=== PATIENT | female | born 1950 | race Caucasian/White ===

== ENCOUNTER → 2018-12-01 13:26 | Outpatient (CLI) | payer MEDICARE, BC, OTHER, SELFPAY ==
--- NOTE | 2018-12-01 | DI.MG.S_ITS ---
BILATERAL DIGITAL SCREENING MAMMOGRAM 3D/2D WITH CAD: 12/01/2018 CLINICAL: Routine screening. Comparison is made to exams dated: 10/24/2017 mammogram, 10/17/2016 mammogram, and 10/12/2015 mammogram - [facility]. There are scattered fibroglandular elements in both breasts. Current study was also evaluated with a Computer Aided Detection (CAD) system. No significant masses, calcifications, or other findings are seen in either breast. There has been no significant interval change. IMPRESSION: NEGATIVE There is no mammographic evidence of malignancy. A 1 year screening mammogram is recommended. This exam was interpreted at Station ID: [id number]. NOTE: For mammograms, a report in lay terms will be sent to the patient. Approximately 15% of breast malignancies will not be visualized mammographically. In the management of a palpable breast mass, a negative mammogram must not discourage biopsy of a clinically suspicious lesion. Electronically Signed By: Rene lemus/kevin:12/01/2018 16:55:36 letter sent: Normal Exam ACR BI-RADS Category 1: Negative 3341F
== END ==
PROVIDERS: PCP Family Medicine; Visit Provider Family Medicine
DX: Z12.31 Encounter for screening mammogram for malignant neoplasm of breast (principal)
CPT/HCPCS: 77063; 77067

== ENCOUNTER → 2019-02-09 08:03 | Outpatient (CLI) | payer MEDICARE, BC, OTHER, SELFPAY ==
[2019-02-09 10:03] LABS: Cholesterol 208 mg/dL (140-199); HDL Cholesterol 49 mg/dL (40-60); LDL Cholesterol Calculated 115 mg/dL (<100); Triglycerides 221 mg/dL (35-150)
[2019-02-09 11:04] LABS: Vitamin D 25 Hydroxy (D3) 25.1 ng/mL (30.0-100.0)
== END ==
PROVIDERS: PCP Student in an Organized Health Care Education/Training Program; Visit Provider Student in an Organized Health Care Education/Training Program
DX: E55.9 Vitamin D deficiency, unspecified (principal); Z13.220 Encounter for screening for lipoid disorders
CPT/HCPCS: 36415; 80061; 82306

== ENCOUNTER → 2019-03-11 09:45 | Outpatient (CLI) | payer MEDICARE, BC, OTHER, SELFPAY | PROVIDERS: PCP Student in an Organized Health Care Education/Training Program; Visit Provider Student in an Organized Health Care Education/Training Program | DX: Z13.820 Encounter for screening for osteoporosis (principal); Z78.0 Asymptomatic menopausal state | CPT/HCPCS: 77080 ==

== ENCOUNTER → 2019-12-18 11:13 | Outpatient (CLI) | payer MEDICARE, BC, OTHER, SELFPAY ==
--- NOTE | 2019-12-18 | DI.MG.S_ITS ---
BILATERAL DIGITAL SCREENING MAMMOGRAM 3D/2D WITH CAD: 12/18/2019 CLINICAL: Routine screening. Comparison is made to exams dated: 12/01/2018 mammogram, 10/24/2017 mammogram, and 10/17/2016 mammogram - [facility]. There are scattered fibroglandular elements in both breasts. Current study was also evaluated with a Computer Aided Detection (CAD) system. No significant masses, calcifications, or other findings are seen in either breast. There has been no significant interval change. IMPRESSION: NEGATIVE There is no mammographic evidence of malignancy. A 1 year screening mammogram is recommended. This exam was interpreted at Station ID: [id number]. NOTE: For mammograms, a report in lay terms will be sent to the patient. Approximately 15% of breast malignancies will not be visualized mammographically. In the management of a palpable breast mass, a negative mammogram must not discourage biopsy of a clinically suspicious lesion. Electronically Signed By: Rene lemus/kevin:12/18/2019 17:53:35 letter sent: Normal Exam ACR BI-RADS Category 1: Negative 3341F
== END ==
PROVIDERS: PCP Student in an Organized Health Care Education/Training Program; Visit Provider Student in an Organized Health Care Education/Training Program
DX: Z12.31 Encounter for screening mammogram for malignant neoplasm of breast (principal)
CPT/HCPCS: 77063; 77067

== ENCOUNTER → 2020-12-22 08:36 | Outpatient (CLI) | payer MEDICARE, BC, OTHER, SELFPAY ==
[2020-12-22] MEDS: COVID-19 VACC #1, MRNA(MOD) 100 MCG/0.5 ML VIAL IM (08:41)
== END ==
PROVIDERS: PCP Student in an Organized Health Care Education/Training Program; Visit Provider Internal Medicine
DX: Z23 Encounter for immunization (principal)
CPT/HCPCS: 0011A; 91301

== ENCOUNTER → 2020-12-29 08:26 | Outpatient (CLI) | payer MEDICARE, BC, OTHER, SELFPAY ==
--- NOTE | 2020-12-29 | DI.MG.S_ITS ---
BILATERAL DIGITAL SCREENING MAMMOGRAM 3D/2D WITH CAD: 12/29/2020 CLINICAL: Routine screening. Comparison is made to exams dated: 12/18/2019 mammogram, 12/01/2018 mammogram, and 10/24/2017 mammogram - [facility]. There are scattered fibroglandular elements in both breasts. Current study was also evaluated with a Computer Aided Detection (CAD) system. No significant masses, calcifications, or other findings are seen in either breast. There has been no significant interval change. IMPRESSION: NEGATIVE There is no mammographic evidence of malignancy. A 1 year screening mammogram is recommended. This exam was interpreted at Station ID: [id number]. NOTE: For mammograms, a report in lay terms will be sent to the patient. Approximately 15% of breast malignancies will not be visualized mammographically. In the management of a palpable breast mass, a negative mammogram must not discourage biopsy of a clinically suspicious lesion. Electronically Signed By: Adam dasilva/kevin:12/29/2020 08:53:39 letter sent: Normal Exam ACR BI-RADS Category 1: Negative 3341F
== END ==
PROVIDERS: PCP Student in an Organized Health Care Education/Training Program; Referring Provider Student in an Organized Health Care Education/Training Program; Visit Provider Student in an Organized Health Care Education/Training Program
DX: Z12.31 Encounter for screening mammogram for malignant neoplasm of breast (principal)
CPT/HCPCS: 77063; 77067

== ENCOUNTER → 2021-01-19 08:21 | Outpatient (CLI) | payer MEDICARE, BC, OTHER, SELFPAY ==
[2021-01-19] MEDS: COVID-19 VACC #2, MRNA(MOD) 100 MCG/0.5 ML VIAL IM (08:25)
== END ==
PROVIDERS: PCP Student in an Organized Health Care Education/Training Program; Visit Provider Internal Medicine
DX: Z23 Encounter for immunization (principal)
CPT/HCPCS: 0012A; 91301

== ENCOUNTER → 2022-02-07 11:11 | Outpatient (CLI) | payer MEDICARE, BC, OTHER, SELFPAY ==
--- NOTE | 2022-02-07 | DI.MG.S_ITS ---
BILATERAL DIGITAL SCREENING MAMMOGRAM 3D/2D WITH CAD: 02/07/2022 CLINICAL: Routine screening. Comparison is made to exams dated: 12/18/2019 mammogram, 12/29/2020 mammogram, and 12/01/2018 mammogram - [facility]. There are scattered fibroglandular elements in both breasts. Current study was also evaluated with a Computer Aided Detection (CAD) system. No significant masses, calcifications, or other findings are seen in either breast. There has been no significant interval change. IMPRESSION: NEGATIVE There is no mammographic evidence of malignancy. A 1 year screening mammogram is recommended. This exam was interpreted at Station ID: [id number]. NOTE: For mammograms, a report in lay terms will be sent to the patient. Approximately 15% of breast malignancies will not be visualized mammographically. In the management of a palpable breast mass, a negative mammogram must not discourage biopsy of a clinically suspicious lesion. Electronically Signed By: Adam dasilva/kevin:02/07/2022 14:33:28 letter sent: Normal Exam ACR BI-RADS Category 1: Negative 3341F
== END ==
PROVIDERS: PCP Student in an Organized Health Care Education/Training Program; Referring Provider Student in an Organized Health Care Education/Training Program; Visit Provider Student in an Organized Health Care Education/Training Program
DX: Z12.31 Encounter for screening mammogram for malignant neoplasm of breast (principal)
CPT/HCPCS: 77063; 77067

== ENCOUNTER → 2023-02-26 08:37 | Outpatient (CLI) | payer MEDICARE, BC, OTHER, SELFPAY ==
--- NOTE | 2023-02-26 | DI.MG.S_ITS ---
BILATERAL DIGITAL SCREENING MAMMOGRAM 3D/2D WITH CAD: 02/26/2023 CLINICAL: Routine screening. Comparison is made to exams dated: 02/07/2022 mammogram, 12/29/2020 mammogram, and 12/18/2019 mammogram - [facility]. There are scattered areas of fibroglandular density in both breasts (category b / 25%-50% glandular tissue). Current study was also evaluated with a Computer Aided Detection (CAD) system. No significant masses, calcifications, or other findings are seen in either breast. There has been no significant interval change. IMPRESSION: NEGATIVE There is no mammographic evidence of malignancy. A 1 year screening mammogram is recommended. Based on the Tyrer Cuzick model (a risk assessment model) the patient's lifetime risk is 4.5% and her 10 year risk is 3.7%. According to the ACR, ACS, and NCCN guidelines, an annual breast MRI exam along with mammogram is recommended if the patient's lifetime risk is 20% or greater. This exam was interpreted at Station ID: [id number]. NOTE: For mammograms, a report in lay terms will be sent to the patient. Approximately 15% of breast malignancies will not be visualized mammographically. In the management of a palpable breast mass, a negative mammogram must not discourage biopsy of a clinically suspicious lesion. Electronically Signed By: Sandrine correa/kevin:02/26/2023 09:43:30 letter sent: Normal Exam ACR BI-RADS Category 1: Negative 3341F
== END ==
PROVIDERS: PCP Student in an Organized Health Care Education/Training Program; Referring Provider Student in an Organized Health Care Education/Training Program; Visit Provider Student in an Organized Health Care Education/Training Program
DX: Z12.31 Encounter for screening mammogram for malignant neoplasm of breast (principal)
CPT/HCPCS: 77063; 77067

== ENCOUNTER → 2023-10-11 07:23 | Outpatient (CLI) | payer MEDICARE, BC, OTHER, SELFPAY ==
[2023-10-11 08:36] LABS: Hematocrit 40.3 % (36-46); Hemoglobin 13.4 g/dL (12.0-16.0); Mean Corpuscular HGB Conc 33.2 % (30-36); Mean Corpuscular Hemoglobin 27.2 PG (26-34); Platelet Count 190 X10^3/uL (150-400); Red Blood Cell Count 4.91 X10^6/uL (4.0-5.2); Red Cell Distribution Width 12.6 % (11.6-14.8); White Blood Cell Count 4.7 X10^3/uL (4.5-11.0)
[2023-10-11 08:41] LABS: Alanine Aminotransferase 28 IU/L (<35); Albumin 4.2 g/dL (3.5-5.0); Albumin Globulin Ratio 1.4 (1.0-2.8); Alkaline Phosphatase 64 U/L (38-126); Aspartate Aminotransferase 26 IU/L (14-36); Bilirubin Total 0.8 mg/dL (0.2-1.3); Blood Urea Nitrogen 12 mg/dL (7-17); Calcium 9.4 mg/dL (8.4-10.2); Carbon Dioxide 27 mmol/L (22-32); Chloride 103 mmol/L (98-107); Cholesterol 213 mg/dL (140-199); Estimated Glomerular Filt Rate > 60 mL/min (>60); Glucose 97 mg/dL (80-110); HDL Cholesterol 51 mg/dL (40-60); HEMOLYSIS < 15 (0-50); LDL Cholesterol Calculated 107 mg/dL (<100); Potassium 4.3 mmol/L (3.4-5.1); Sodium 138 mmol/L (137-145); Total Protein 7.2 g/dL (6.3-8.2); Triglycerides 274 mg/dL (35-150)
[2023-10-11 09:16] LABS: TSH w/ Reflex to FT4 2.44 uIU/mL (0.47-4.68)
== END ==
PROVIDERS: PCP Internal Medicine; Referring Provider Internal Medicine; Visit Provider Internal Medicine
DX: E78.2 Mixed hyperlipidemia (principal); H40.9 Unspecified glaucoma; R03.0 Elevated blood-pressure reading, without diagnosis of hypertension
CPT/HCPCS: 36415; 80053; 80061; 84443; 85027

== ENCOUNTER → 2024-03-19 09:02 | Outpatient (CLI) | payer MEDICARE, BC, OTHER, SELFPAY ==
--- NOTE | 2024-03-19 09:04 | DI.MG.S_ITS ---
BILATERAL DIGITAL SCREENING MAMMOGRAM 3D/2D WITH CAD: 03/19/2024 CLINICAL: Routine screening. Comparison is made to exams dated: 02/26/2023 mammogram, 02/07/2022 mammogram, and 12/29/2020 mammogram - [facility]. Both breasts are almost entirely fatty (category a/<25% glandular tissue). Current study was also evaluated with a Computer Aided Detection (CAD) system. No significant masses, calcifications, or other findings are seen in either breast. There has been no significant interval change. IMPRESSION: NEGATIVE There is no mammographic evidence of malignancy. A 1 year screening mammogram is recommended. Based on the Tyrer Cuzick model (a risk assessment model) the patient's lifetime risk is 2.8% and her 10 year risk is 2.5%. According to the ACR, ACS, and NCCN guidelines, an annual breast MRI exam along with mammogram is recommended if the patient's lifetime risk is 20% or greater. This exam was interpreted at Station ID: [id number]. NOTE: For mammograms, a report in lay terms will be sent to the patient. Approximately 15% of breast malignancies will not be visualized mammographically. In the management of a palpable breast mass, a negative mammogram must not discourage biopsy of a clinically suspicious lesion. Electronically Signed By: Geremias graham/kevin:03/19/2024 13:34:16 letter sent: Normal Exam ACR BI-RADS Category 1: Negative 3341F
== END ==
PROVIDERS: PCP Internal Medicine; Referring Provider Internal Medicine; Visit Provider Internal Medicine
DX: Z12.31 Encounter for screening mammogram for malignant neoplasm of breast (principal); R92.313 Mammographic fatty tissue density, bilateral breasts
CPT/HCPCS: 77063; 77067

== ENCOUNTER → 2024-04-07 07:22 | Outpatient (CLI) | payer MEDICARE, BC, OTHER, SELFPAY ==
[2024-04-07 08:59] LABS: Cholesterol 211 mg/dL (140-199); HDL Cholesterol 73 mg/dL (40-60); LDL Cholesterol Calculated 91 mg/dL (<100); Triglycerides 236 mg/dL (35-150)
== END ==
PROVIDERS: PCP Internal Medicine; Referring Provider Internal Medicine; Visit Provider Internal Medicine
DX: E78.2 Mixed hyperlipidemia (principal)
CPT/HCPCS: 36415; 80061

== ENCOUNTER → 2025-03-24 07:29 | Outpatient (CLI) | payer MEDICARE, BC, OTHER, SELFPAY ==
[2025-03-24 08:19] LABS: Hematocrit 42.6 % (36-46); Hemoglobin 14.4 g/dL (12.0-16.0); Mean Corpuscular HGB Conc 33.8 % (30-36); Mean Corpuscular Hemoglobin 27.8 PG (26-34); Mean Corpuscular Volume 82.3 fL (80-100); Platelet Count 178 X10^3/uL (150-400); Red Blood Cell Count 5.18 X10^6/uL (4.0-5.2); Red Cell Distribution Width 13.1 % (11.6-14.8); White Blood Cell Count 5.3 X10^3/uL (4.5-11.0)
[2025-03-24 08:45] LABS: Alanine Aminotransferase 29 IU/L (<35); Albumin 4.5 g/dL (3.5-5.0); Albumin Globulin Ratio 1.8 (1.0-2.8); Alkaline Phosphatase 75 U/L (38-126); Aspartate Aminotransferase 25 IU/L (14-36); BUN Creatinine Ratio 22.4 (6-22); Bilirubin Total 0.9 mg/dL (0.2-1.3); Blood Urea Nitrogen 15 mg/dL (7-17); Calcium 9.6 mg/dL (8.4-10.2); Carbon Dioxide 25 mmol/L (22-32); Chloride 107 mmol/L (98-107); Cholesterol 202 mg/dL (140-199); Estimated Glomerular Filt Rate > 60 mL/min (>60); Globulin 2.5 g/dL (1.7-4.1); Glucose 93 mg/dL (70-99); HDL Cholesterol 61 mg/dL (40-60); HEMOLYSIS < 15 (0-50); LDL Cholesterol Calculated 91 mg/dL (<100); Potassium 4.8 mmol/L (3.4-5.1); Sodium 142 mmol/L (137-145); Triglycerides 248 mg/dL (35-150)
[2025-03-24 09:14] LABS: TSH w/ Reflex to FT4 1.79 uIU/mL (0.47-4.68)
== END ==
PROVIDERS: PCP Internal Medicine; Referring Provider Internal Medicine; Visit Provider Internal Medicine
DX: R03.0 Elevated blood-pressure reading, without diagnosis of hypertension (principal); E78.2 Mixed hyperlipidemia
CPT/HCPCS: 36415; 80053; 80061; 84443; 85027

== ENCOUNTER → 2025-03-31 08:32 | Outpatient (CLI) | payer MEDICARE, BC, OTHER, SELFPAY ==
--- NOTE | 2025-03-31 08:34 | DI.RAD.S_ITS ---
PROCEDURE: FL UPPER GI SERIES INDICATIONS: acid reflux COMPARISON: None. 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 No suspicious abdominal calcifications. Visualized solid organ contours appear normal. Degenerative changes lower thoracic, lumbar spine with mild S-shaped scoliosis. Degenerative changes bilateral hips partially imaged. Esophagus: Esophageal mucosa is normal on air-contrast views. On single-contrast views, there is normal esophageal peristalsis. No strictures, extrinsic mass effects, or diverticula. No hiatal hernia or elicited gastroesophageal reflux. Stomach: The stomach is normally distensible, with normal rugal fold thickness. There is an indentation of the greater curvature of the stomach which appears to be related to the lower edge of the left ribs. No mucosal masses or ulcers. Pylorus and duodenal bulb appear normal in morphology. Duodenal folds are normal in thickness as well. IMPRESSION: No fluoroscopic evidence of hiatal hernia or gastroesophageal reflux. Indentation on the greater curvature of the stomach seen during fluoroscopy appeared to be related to indentation of the left lower ribs. If indicated CT abdomen/pelvis could be performed Dictated by: Siddhartha Traylor M.D. on 03/31/2025 at 12:11 Approved by: Siddhartha Traylor M.D. on 03/31/2025 at 12:15
== END ==
LOC: RAD 08:33
PROVIDERS: PCP Internal Medicine; Referring Provider Internal Medicine; Visit Provider Internal Medicine
DX: K21.9 Gastro-esophageal reflux disease without esophagitis (principal)
CPT/HCPCS: 74240

== ENCOUNTER → 2025-04-27 09:02 | Outpatient (CLI) | payer MEDICARE, BC, OTHER, SELFPAY ==
--- NOTE | 2025-04-27 09:03 | DI.MG.S_ITS ---
MM screening mammo BI: 04/27/2025. BI-RADS: 1 CLINICAL: 74-year old female for bilateral screening mammogram. Tyrer-Cuzick lifetime risk of 1.8%. No personal or first-degree family history of breast cancer. PRIOR EXAMS 03/19/2024, 02/26/2023, 02/07/2022, 12/29/2020, 12/18/2019, 12/01/2018, 10/24/2017, 10/17/2016, 10/12/2015. MAMMOGRAPHY TECHNIQUE: 2D and 3D (tomosynthesis) digital mammographic views obtained, with additional images as needed for full coverage. Current study was also evaluated with a Computer Aided Detection (CAD) system. DENSITY A. The breasts are almost entirely fatty. MAMMOGRAPHY FINDINGS Bilateral: No suspicious mass, asymmetry, microcalcification, or other abnormality seen. No significant change from comparison. IMPRESSION: * No evidence of malignancy. RECOMMENDATIONS Bilateral * Annual screening mammography. OVERALL ASSESSMENT CATEGORY BI-RADS-1: Negative. The [employer] recommends annual screening mammography beginning at age 40 for women with average risk of breast cancer. ELECTRONICALLY SIGNED: Letty Ellis M.D. on 04/27/2025 at 05:01:39 PM PT Interpreting Station ID: [id number]
== END ==
LOC: MAMMO 09:02
PROVIDERS: PCP Internal Medicine; Referring Provider Internal Medicine; Visit Provider Internal Medicine
DX: Z12.31 Encounter for screening mammogram for malignant neoplasm of breast (principal); R92.313 Mammographic fatty tissue density, bilateral breasts
CPT/HCPCS: 77063; 77067

== ENCOUNTER → 2025-06-23 08:52 | Outpatient (CLI) | payer MEDICARE, BC, OTHER, SELFPAY ==
--- NOTE | 2025-06-23 08:55 | DI.RAD.S_ITS ---
PROCEDURE: XR CHEST 2V INDICATIONS: cough, severe GERD TECHNIQUE: 2 views of the chest were acquired. COMPARISON: None. FINDINGS: Heart, mediastinum and pulmonary vascular: Heart is normal in size and configuration. Mediastinum is unremarkable. Pulmonary vascular is normal. Lungs: Moderate consolidated right lower lobe infiltrate likely represents pneumonia. Small right pleural effusion appreciated. Moderate patchy infiltrate in the posterior left lower lobe also noted Pleural spaces: Normal-no effusions or pneumothorax. IMPRESSION: Moderate consolidated infiltrate posterior right lower lobe moderate patchy infiltrate posterior left lower lobe. This likely represents aspiration pneumonia Dictated by: Kt Roberts M.D. on 06/24/2025 at 11:45 Approved by: Kt Roberts M.D. on 06/24/2025 at 11:46
[2025-06-23 09:33] LABS: Hematocrit 44.5 % (36-46); Hemoglobin 15.0 g/dL (12.0-16.0); Mean Corpuscular HGB Conc 33.6 % (30-36); Mean Corpuscular Hemoglobin 27.2 PG (26-34); Mean Corpuscular Volume 80.9 fL (80-100); Platelet Count 217 X10^3/uL (150-400)
[2025-06-23 10:11] LABS: Alanine Aminotransferase 31 IU/L (<35); Albumin 4.4 g/dL (3.5-5.0); Albumin Globulin Ratio 1.5 (1.0-2.8); Alkaline Phosphatase 96 U/L (38-126); Blood Urea Nitrogen 16 mg/dL (7-17); Calcium 9.5 mg/dL (8.4-10.2); Carbon Dioxide 20 mmol/L (22-32); Chloride 109 mmol/L (98-107); Estimated Glomerular Filt Rate > 60 mL/min (>60); Globulin 3.0 g/dL (1.7-4.1); Glucose 103 mg/dL (70-99); HEMOLYSIS < 15 (0-50); Potassium 4.3 mmol/L (3.4-5.1); Sodium 141 mmol/L (137-145); Total Protein 7.4 g/dL (6.3-8.2)
== END ==
PROVIDERS: PCP Internal Medicine; Referring Provider Internal Medicine; Visit Provider Internal Medicine
DX: R05.9 Cough, unspecified (principal); J18.9 Pneumonia, unspecified organism; K21.9 Gastro-esophageal reflux disease without esophagitis
CPT/HCPCS: 36415; 71046; 80053; 85027

== ENCOUNTER → 2025-07-30 07:43 | Outpatient (CLI) | payer MEDICARE, BC, OTHER, SELFPAY ==
--- NOTE | 2025-07-30 07:44 | DI.CT.S_ITS ---
PROCEDURE: CT CHEST ABD PEL W CON INDICATIONS: severe GERD, abnormal upper GI chronic aspiration TECHNIQUE: After the administration of intravenous contrast, 5 mm thick sections acquired from the lung apices to the symphysis. 5 mm coronal and sagittal reformats were performed, with additional 7 mm MIP reformats through the lungs. For radiation dose reduction, the following was used: automated exposure control, adjustment of mA and/or kV according to patient size. COMPARISON: [place], [place], [place] GASTRIC EMPTYING STUDY, 07/30/2025, 7:58. FINDINGS: Image quality: Excellent. CHEST: Lower Neck: No enlarged lymph nodes. Thyroid: No thyroid nodules which require sonographic follow up, per consensus guidelines. Axillae: No enlarged lymph nodes. Chest Wall: Unremarkable. Lungs and Pleura: No pneumothorax or pleural effusions. Extensive ground-glass opacities are noted in posterior aspect of right upper lobe, left lingular segment and bilateral lower lobes with large airspace opacity in posterior medial aspect of right lower lobe and smaller airspace opacities scattered in posterior and lateral periphery of left lower lobe and medial aspect of right middle lobe near bilateral lung bases. 6 mm calcified granuloma is also seen in lateral aspect of left lower lobe series 5, image 136 Heart: Heart size is normal. No pericardial effusion. Thoracic Vessels: The aorta and pulmonary arteries demonstrate normal size. Mediastinum and June: No enlarged lymph nodes. Subcentimeter lymph nodes are seen in mediastinum and bilateral hilar region measures up to 7 mm in size. Esophagus: Distal esophageal wall thickening and edema is noted. Small hiatal hernia. ABDOMEN: Liver: No solid mass. Well-circumscribed hypodense areas are seen scattered in liver parenchyma measures up to 2.8 x 1.9 cm in size in anterior periphery of right hepatic lobe and 11.8 Hounsfield unit in density likely represent hepatic cysts. There is also likely cyst in inferior right hepatic lobe measures 2.8 x 2.9 cm in size series 2, image 115. Gallbladder: No radiopaque gallstones or wall thickening. Biliary ducts: No biliary dilation. Pancreas: No ductal dilation. Spleen: Size is within normal limits. Adrenal Glands: No adrenal nodules. Kidneys and Ureters: No hydronephrosis. No solid mass. No complex renal cystic lesion which requires follow up. Stomach and Bowel: There is mild diffuse gastric wall thickening. No gross small bowel or colon wall thickening. Appendix is visualized in right lower quadrant and is within normal limits. Sigmoid diverticulosis without CT evidence of acute diverticulitis. No abscess collection. Peritoneum: No abnormal intraperitoneal fluid. No free air. Ventral Wall: No significant ventral hernia. Abdominal Nodes: No retroperitoneal or mesenteric adenopathy by size criteria. Vessels: Aorta and inferior vena cava are normal in size. PELVIS: Pelvic Organs: Unremarkable. Bladder: No bladder wall thickening, accounting for underdistention. Pelvic Nodes: No enlarged lymph nodes. Subcentimeter lymph nodes are seen scattered in lower abdomen mesentery measures up to 5 mm in size. Miscellaneous: No inguinal hernias are seen. Bones: No aggressive osseous abnormality. Osteoarthritic changes throughout bony pelvis. No acute vertebral body compression fractures. Moderate kyphosis is seen. IMPRESSION: 1. Extensive bilateral multilobar infiltrates with mid to lower lung zone predominance and is most notably involving right lower lobe likely from aspiration. Additional ground-glass opacities also seen in posterior aspect of bilateral lung ac concerning for an extensive pneumonitis. No pleural effusion or pneumothorax. Follow-up until resolution is recommended to rule out underlying neoplastic process. 2. Diffuse distal esophageal wall thickening and gastric wall thickening concerning for esophagitis and gastritis. No small bowel or colon wall thickening. No bowel obstruction. No free fluid or free air. Normal appendix. Colonic diverticulosis without CT evidence of acute diverticulitis. 3. Likely multiple hepatic cysts as above. 4. No lymphadenopathy is seen in chest, abdomen or pelvis. Subcentimeter lymph nodes seen in mediastinum and bilateral hilar region. Nonspecific sub cm lymph nodes also seen scattered in lower abdominal mesentery which can be seen associated with clinical diagnosis of mesenteric adenitis. 5. Other chronic incidental findings as described above. Dictated by: Colt Ruffin M.D. on 07/30/2025 at 14:05 Approved by: Colt Ruffin M.D. on 07/30/2025 at 14:16
--- NOTE | 2025-07-30 07:44 | DI.NM.S_ITS ---
PROCEDURE: [place] GASTRIC EMPTYING STUDY RADIOPHARMACEUTICAL: 1 mCi Tc-99m sulfur colloid in an egg sandwich. INDICATIONS: severe reflux TECHNIQUE: A Tc-99m labeled sulfur colloid labeled egg sandwich or oatmeal was served to the patient. Anterior and posterior planar images of the abdomen were obtained at 0 minutes and 30 minutes, then at hourly intervals up to 4 hours. The patient was upright and ambulating during the interval. COMPARISON: None. FINDINGS: The stomach has normal size, morphology, and position. There is normal emptying of solid gastric contents from the stomach by visual inspection. No gastroesophageal reflux is visualized. The percentage of tracer retained at specific time points are as follows: Time point Percent gastric retention Normal range 30 minutes 64% 70% or more 1 hour 33% 30% to 90% 2 hours 4% 60% or less 3 hours 1% 30% or less IMPRESSION: Greater than expected radiotracer clearance at 30 minutes, which can be seen with dumping. Dictated by: Geremias Glez M.D. on 07/30/2025 at 11:31 Approved by: Geremias Glez M.D. on 07/30/2025 at 11:32
[2025-07-30 08:32] LABS: Estimated Glomerular Filt Rate > 60 mL/min (>60)
== END ==
PROVIDERS: PCP Internal Medicine; Referring Provider Internal Medicine; Visit Provider Internal Medicine
DX: J69.0 Pneumonitis due to inhalation of food and vomit (principal); K21.9 Gastro-esophageal reflux disease without esophagitis; R05.3 Chronic cough; K44.9 Diaphragmatic hernia without obstruction or gangrene; K57.30 Diverticulosis of large intestine without perforation or abscess without bleeding; K76.9 Liver disease, unspecified
CPT/HCPCS: 36415; 71260; 74177; 78264; 82565; A9541; Q9967

== ENCOUNTER 2025-08-03 11:01 | Day surgery (SDC) | payer MEDICARE, BC, OTHER, SELFPAY ==
--- NOTE | 2025-08-02 10:21 | EKG_ITS ---
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
--- NOTE | 2025-08-03 | PATH_ITS ---
[facility] Accession Number: [id number] No. of containers..01 Tissue . 01 Material submitted: . gastrointestinal site - ANTRUM . 01 Clinical history: . R/O H.PYLORI . 01 Diagnosis: GASTRIC ANTRUM, BIOPSY: Gastric antral mucosa with no diagnostic abnormality. No evidence of Helicobacter organisms on H/E stain. Negative for intestinal metaplasia. Negative for dysplasia or malignancy. [facility] 08/12/2025 1224 Local . 01 Electronically signed: . Vishnu Owusu MD, PhD, Pathologist NPI- [id number] . 01 Gross description: . Received is one formalin-filled container labeled with the patient's name and labeled antrum, are two fragments of ramon, soft tissue which range in size from less than 0.1 cm to 0.3 x 0.2 x 0.2 cm. All fragments are totally submitted in cassette A1. ([id number]) /HARLAN 08/10/2025 0841 Local . 01 Pathologist provided ICD-10: K21.9, R10.13 . 01 CPT . 169060 Specimen Comment: A courtesy copy of this report has been sent to [facility] Pathology Performed at: [address] [facility] [address], [place], [place] [id number] MD Toribio Mcmullen MD Phone: [phone]
--- NOTE | 2025-08-03 06:51 | PM.HP.IH.1 ---
History of Present Illness History of Present Illness Date Patient Seen: 08/03/25 Time Patient Seen: 06:51 Chief complaint: [facility] Narrative: 75yo F, h/o regurgitation, UGI symptoms. Presents for EGD today to r/o hiatal hernia, GERD, esophagitis, PUD. [facility] Medical History Allergic rhinitis Chicken pox (~1954) Essential hypertension GERD without esophagitis Measles (~1954) Mumps (~1958) Seborrhea (~2004) Vision disorder Surgical History Anesthesia Glaucoma (~2002) Family History Sister Age: 84 Hypertension Sister Age: 72 Glaucoma Gastric reflux Migraines Hypertension Father Cancer Mother Stroke Social History details: (Phil), no children; retired [employer] alcohol intake: current substance use type: does not use Meds Home Medications and Allergies Home Medications ?Medication ?Instructions ?Recorded ?Confirmed ?Type loratadine 10 mg tablet (Claritin) 10 mg PO DAILY 02/04/19 07/22/25 History dorzolamide 22.3 mg-timolol 6.8 1 drp EYE-RIGHT BID 10/09/23 07/22/25 History mg/mL eye drops latanoprost 0.005 % eye drops 1 drp EYE-RIGHT DAILY 10/09/23 07/22/25 History Tums Ultra PO 07/22/25 History metoclopramide HCl 5 mg tablet 5 mg PO QAC #90 tabs 07/22/25 07/22/25 Rx Allergies Allergy/AdvReac Type Severity Reaction Status Date / Time prednisone (PREDNISONE) AdvReac Severe burning Verified 07/22/25 08:06 red spots rosuvastatin AdvReac Intermediate Dizziness Verified 07/22/25 08:06 prostaglandins AdvReac Severe high blood Uncoded 07/22/25 08:06 pressure Exam Narrative Exam Narrative: Const General: comfortable Orientation: alert and oriented x3 Resp Effort & Inspection: normal respiratory effort and able to speak in complete sentences Cardio Rate: regular rate GI Palpation: soft (NT) Extrem General: no pedal edema and no calf tenderness Assessment & Plan Assessment and plan (1) Encounter for screening colonoscopy: Status: Acute Plan Plan screening colonoscopy, possible biopsy. The risks, benefits and options regarding the procedure were explained to the patient in detail. Risk discussion included but not limited to: bleeding, perforation, missed lesion, unable to reach cecum. The patient was encouraged to ask questions and they were answered to their satisfaction. The patient understands and is agreeable to proceed. Time-Based Coding :: [TOTAL MINUTES] spent with patient and on the chart (including review of chart, obtaining history, exam, reviewing outside data, placing orders, documenting exam and treatment plan, and counseling patient) on [DATE]. 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
[2025-08-03] MEDS: LACTATED RINGERS 1,000 ML 42 ML IV (12:50)
[2025-08-03 13:00] VITALS: BP 147/85; PULSE 95; RESP 24; TEMP 36.8; O2SAT 92
--- NOTE | 2025-08-03 13:29 | PM.OP.EGD ---
Operative Date/Time/Diagnoses Date of procedure: 08/03/25 Time of procedure: 13:44 Pre-op diagnosis: Regurgitation Post-op diagnosis: other (Significant antral gastritis, patulous hiatus, small antral ulcer 3mm, benign appearing) Procedure & Clinicians Study performed: EGD with biopsy Same procedure(s) as scheduled: Yes Indications: 75yo F with regurgitation Surgeon: Bruce Becker Anesthesia Type: MAC +/- Procedure Notes SCOAP/Timeout: Performed Procedure in detail: EGD Informed consent was obtained. The procedure, its risks, benefits, and alternatives were discussed. Patient understood and agreed to proceed. The patient was placed in the left lateral decubitus position with head elevated. Sedation given per anesthesia. The video endoscope was inserted into the oropharynx and guided under direct vision into the esophagus, stomach, and duodenum which were carefully examined. The scope was retroflexed to examine the hiatus and gastroesophageal junction. Antral biopsies were obtained for Helicobacter pylori. The patient tolerated the procedure very well. There were no apparent complications. Significant EGD findings: Z-line noted at: 36cm Patulous LES, no hiatal hernia No esophagitis No duodenitis Moderate to severe antral gastritis, has appearance of hpylori, biopsies taken Small 3mm benign appearing gastric ulcer, not biopsied (patient desat) Lot of secretions in esophagus and pharynx Findings: gastric ulcer and gastritis Specimen(s): other (antral bx for hpylori) Complications: none Impression: Antral ulcer Antral gastritis, mod to sev, biopsies taken for hpylori Patulous LES Post-procedure Recommendations: Will call with biopsy results Plan for aftercare: PACU then home BID PPI Follow up: as needed Disposition: PACU
[2025-08-03 13:42] VITALS: BP 146/77; PULSE 90; RESP 16; TEMP 37.2; O2SAT 90
[2025-08-03 13:47] VITALS: BP 152/75; PULSE 89; RESP 11; O2SAT 90
[2025-08-03 13:49] VITALS: BP 140/67; PULSE 86; RESP 16; O2SAT 90
[2025-08-03 13:54] VITALS: BP 155/79; PULSE 87; RESP 23; O2SAT 90
== END 2025-08-03 14:13 | disposition home or self-care (01) ==
PROVIDERS: PCP Internal Medicine; Referring Provider Internal Medicine; Visit Provider Surgery
PROC: 0DJ08ZZ Inspection of Upper Intestinal Tract, Via Natural or Artificial Opening Endoscopic (ICD-10-PCS; CPT 43239; principal; 2025-08-03 12:45)
DX: R11.10 Vomiting, unspecified (principal); K29.70 Gastritis, unspecified, without bleeding; K25.9 Gastric ulcer, unspecified as acute or chronic, without hemorrhage or perforation
CPT/HCPCS: 43239; 93005; J2704

== ENCOUNTER 2025-08-16 09:42 | Inpatient (IN) | payer MEDICARE, BC, OTHER, SELFPAY ==
--- NOTE | 2025-08-16 10:40 | DI.RAD.S_ITS ---
PROCEDURE: XR CHEST 1V INDICATIONS: hypoxia TECHNIQUE: One view of the chest was acquired. COMPARISON: [facility], CR, XR CHEST 2V, 06/23/2025, 8:49. FINDINGS: Surgical changes and devices: None. Lungs and pleura: Similar bibasilar opacities, right greater than left. Peribronchial cuffing and smooth interstitial thickening. Mediastinum: Mediastinal contours appear normal. Heart size is normal. Bones and chest wall: No suspicious bony lesions. Overlying soft tissues appear unremarkable. IMPRESSION: Similar bibasilar opacities, right greater than left. Findings remain concerning for infection. Superimposed mild pulmonary edema. Dictated by: Jace Ricks M.D. on 08/16/2025 at 12:38 Approved by: Jace Ricks M.D. on 08/16/2025 at 12:39
--- NOTE | 2025-08-16 10:41 | PM.HP.1 ---
History of Present Illness History of Present Illness Date Patient Seen: 08/16/25 Chief complaint: Aspiration Pneumonia Narrative: She was a 75-year-old female who has a direct admit from her primary care office. This is Dr. London. She presents with hypoxemia. She was had progressive hypoxemia since April and a cough. She was also had a lot of reflux symptoms. She has been evaluated with multiple studies including a barium swallow and CT scan. The working hypothesis is that this is reflux induced pneumonitis. She was had multiple treatments with antibiotics and overall continues to deteriorate. She was an oximeter at home and did one reading of high 70s while exerting herself. No fevers or chills. She has had audible wheezing and coughing at home for weeks. She lives with her on [facility]. [facility] Medical History Acute hypoxic respiratory failure GERD without esophagitis Essential hypertension Allergic rhinitis Vision disorder Seborrhea (~2004) Mumps (~1958) Measles (~1954) Chicken pox (~1954) Surgical History Anesthesia Glaucoma (~2002) Family History Sister Age: 84 Hypertension Sister Age: 72 Glaucoma Gastric reflux Migraines Hypertension Father Cancer Mother Stroke Social History details: (Phil), no children; retired [employer] household members: spouse Smoking Status: Never smoker alcohol intake: former substance use type: does not use Meds Home Medications and Allergies Home Medications ?Medication ?Instructions ?Recorded ?Confirmed ?Type loratadine 10 mg tablet (Claritin) 10 mg PO DAILY 02/04/19 08/16/25 History dorzolamide 22.3 mg-timolol 6.8 1 drp EYE-RIGHT BID 10/09/23 08/16/25 History mg/mL eye drops latanoprost 0.005 % eye drops 1 drp EYE-RIGHT DAILY 10/09/23 08/16/25 History Tums Ultra 1 tab PO TID PRN acid reflux 07/22/25 08/16/25 History metoclopramide HCl 5 mg tablet 5 mg PO QAC #90 tabs 07/22/25 08/16/25 Rx omeprazole 40 mg capsule,delayed 40 mg PO BID #90 caps 08/03/25 08/16/25 Rx release albuterol sulfate 90 mcg/actuation 2 inh inhalation Q4H PRN shortness 08/16/25 08/16/25 History aerosol inhaler of breath or wheezing Allergies Allergy/AdvReac Type Severity Reaction Status Date / Time prednisone (PREDNISONE) AdvReac Severe burning Verified 08/16/25 08:37 red spots rosuvastatin AdvReac Intermediate Dizziness Verified 08/16/25 08:37 prostaglandins AdvReac Severe high blood Uncoded 08/16/25 08:37 pressure Review of Systems Review of Systems Narrative: All else reviewed and otherwise unremarkable except as noted in the history and physical. Exam Narrative Exam Narrative: NAD, alert and oriented, fluent speech, calm. Normocephalic skull, EOMI, anicteric sclera, symmetric pupils. Oropharynx unremarkable, no droop. Neck supple, midline trachea, no adenopathy. Lungs are diffusely wheezy with scattered rhonchi, normal rate and effort. Heart regular, no murmur gallop or rub. Abdomen is soft, non distended and non tender. Extremities are free of edema. Skin is free of rash or lesions. Joints are not swollen or deformed. Judgment appears to be normal. Objective Labs 08/16/25 10:55 08/16/25 10:55 Labs: Similar bibasilar opacities, right greater than left. Findings remain concerning for infection. Superimposed mild pulmonary edema. Assessment & Plan Assessment & Plan narrative: 1. Asiration pneumonia, Active. 2. Possible reflux causing progressive pneumonitis with significant deterioration. Plan: -IV antibiotics for aspiration pneumonia and monitor progress. -wean oxygen as able. -consult general surgery further opinion on her reflux and what measures might be available to her given her significant deterioration. Full resuscitation Lives with her is proxy decision maker. Time-Based Coding :: 35 min spent with patient and on the chart (including review of chart, obtaining history, exam, reviewing outside data, placing orders, documenting exam and treatment plan, and counseling patient) on 08/16. Quality MIPS - Admit I confirm the patient?s Advance Care Plan is present, Code status is documented, Surrogate decision maker is in patient?s record [If Yes, STOP here]: Yes MIPS - Meds 'Current medications' to include all prescriptions, [id number] products, herbals, cannabis/cannabidiol products, and vitamin/mineral/dietary (nutritional) supplements. I have utilized all available resources to obtain, update, or review the patient?s current medications. [If Yes, STOP here]: Yes
[2025-08-16 10:43] VITALS: BP 154/92; PULSE 89; RESP 24; TEMP 36.9; O2SAT 94
[2025-08-16 10:45] VITALS: O2SAT 94
[2025-08-16] MEDS: SODIUM CHLORIDE 0.9% 1,000 ML 100 ML IV (10:58)
[2025-08-16] MEDS: PIPERACILLIN/TAZO 3.375 GM in SODIUM CHLORIDE 0.9% 100 ML IV (10:59)
[2025-08-16] MEDS: HEPARIN 5,000 UNIT/ML VIAL 5000 UNIT SUBCUT ×2 (10:59→20:32)
[2025-08-16 11:02] LABS: Add Manual Diff / Slide Review NO; Hematocrit 43.5 % (36-46); Hemoglobin 14.5 g/dL (12.0-16.0); Lymphocytes Absolute Auto 1200 /uL (1100-4500); Mean Corpuscular HGB Conc 33.3 % (30-36); Mean Corpuscular Hemoglobin 26.6 PG (26-34); Mean Corpuscular Volume 79.9 fL (80-100); Platelet Count 162 X10^3/uL (150-400)
[2025-08-16 11:11] VITALS: BMI 22.7
[2025-08-16 11:24] LABS: Blood Urea Nitrogen 15 mg/dL (7-17); Calcium 9.0 mg/dL (8.4-10.2); Carbon Dioxide 25 mmol/L (22-32); Chloride 107 mmol/L (98-107); Estimated Glomerular Filt Rate > 60 mL/min (>60); Glucose 94 mg/dL (70-99); HEMOLYSIS < 15 (0-50); Potassium 3.9 mmol/L (3.4-5.1); Sodium 140 mmol/L (137-145)
--- NOTE | 2025-08-16 12:46 | PM.CN.IH.1 ---
History of Present Illness Consult details Date Patient Seen: 08/16/25 Time Patient Seen: 12:46 Chief complaint: Aspiration Pneumonia Requesting provider: Victoriano Brennan Narrative: Patient known to our clinic with reflux symptoms. Recent EGD demonstrated a patulous lower esophageal sphincter and a small antral ulcer. She did not have a large hiatal hernia or esophagitis. She tested negative for Helicobacter pylori. Her symptoms include globus sensation and mucus production. She is chronically clearing her throat. She was not on acid suppression baseline and did not find symptom relief when she tried those medications. She has a history of right lower lobe pneumonia suggestive of aspiration and she is currently admitted to the hospital with another aspiration event. Her clinical picture is consistent with acid and/or bile reflux. Without a hiatal hernia or esophagitis or improvement with acid suppression we have more investigation to guide treatment recommendations. Meds Home Medications and Allergies Home Medications ?Medication ?Instructions ?Recorded ?Confirmed ?Type loratadine 10 mg tablet (Claritin) 10 mg PO DAILY 02/04/19 08/16/25 History dorzolamide 22.3 mg-timolol 6.8 1 drp EYE-RIGHT BID 10/09/23 08/16/25 History mg/mL eye drops latanoprost 0.005 % eye drops 1 drp EYE-RIGHT DAILY 10/09/23 08/16/25 History Tums Ultra 1 tab PO TID PRN acid reflux 07/22/25 08/16/25 History metoclopramide HCl 5 mg tablet 5 mg PO QAC #90 tabs 07/22/25 08/16/25 Rx omeprazole 40 mg capsule,delayed 40 mg PO BID #90 caps 08/03/25 08/16/25 Rx release albuterol sulfate 90 mcg/actuation 2 inh inhalation Q4H PRN shortness 08/16/25 08/16/25 History aerosol inhaler of breath or wheezing Allergies Allergy/AdvReac Type Severity Reaction Status Date / Time prednisone (PREDNISONE) AdvReac Severe burning Verified 08/16/25 08:37 red spots rosuvastatin AdvReac Intermediate Dizziness Verified 08/16/25 08:37 prostaglandins AdvReac Severe high blood Uncoded 08/16/25 08:37 pressure Exam Vital Signs (past 8 hours): - 08/16/25 10:43 Temperature 98.4 F Pulse Rate 89 Respiratory Rate 24 Blood Pressure 154/92 H Pulse Oximetry 94 Oxygen Flow Rate 4 Oxygen Flow Rate 4 Const General: comfortable Orientation: alert and oriented x3 Resp Effort & Inspection: normal respiratory effort and able to speak in complete sentences Cardio Rate: regular rate GI Palpation: soft (NT) Extrem General: no pedal edema and no calf tenderness Objective Labs 08/16/25 10:55 08/16/25 10:55 Labs: Laboratory Results - last 24 hr 08/16/25 10:55 WBC 7.4 RBC 5.45 H Hgb 14.5 Hct 43.5 MCV 79.9 L MCH 26.6 MCHC 33.3 RDW 13.7 Plt Count 162 Neut % (Auto) 75.0 Lymph % (Auto) 15.7 L [place] % (Auto) 8.0 Eos % (Auto) 0.7 L Baso % (Auto) 0.6 Neut # (Auto) 5600 Lymph # (Auto) 1200 [place] # (Auto) 600 Eos # (Auto) 100 Baso # (Auto) 0 Sodium 140 Potassium 3.9 Chloride 107 Carbon Dioxide 25 BUN 15 Creatinine 0.60 Estimated GFR > 60 BUN/Creatinine Ratio 25.0 H Glucose 94 Calcium 9.0 PFSH Medical History Acute hypoxic respiratory failure GERD without esophagitis Essential hypertension Allergic rhinitis Vision disorder Seborrhea (~2004) Mumps (~1958) Measles (~1954) Chicken pox (~1954) Surgical History Anesthesia Glaucoma (~2002) Family History Sister Age: 84 Hypertension Sister Age: 72 Glaucoma Gastric reflux Migraines Hypertension Father Cancer Mother Stroke Social History details: (Phil), no children; retired [employer] household members: spouse Tobacco & Substance Use Smoking Status: Never smoker alcohol intake: former substance use type: does not use Assessment & Plan Assessment and plan (1) GERD without esophagitis: Status: Acute Plan Her clinical picture is certainly worrisome for acid and/or bile reflux. In the absence of hiatal hernia or esophagitis or improvement with acid suppression, we need further testing. She needs pH probe testing and esophageal motility. We will refer her to the clinic in [facility] to get this testing done. If her pH probe confirms acid reflux and her esophageal motility is normal we will discuss the pros and cons of complete or partial fundoplication with her. The motility study will determine if she has a primary esophageal motility disorder and if she would tolerate a complete wrap. We will discuss the results of the studies with her when they are available. She will need to be off acid suppression therapy for 2 weeks prior to the pH test. Time-Based Coding :: [TOTAL MINUTES] spent with patient and on the chart (including review of chart, obtaining history, exam, reviewing outside data, placing orders, documenting exam and treatment plan, and counseling patient) on [DATE]. PROFEE Charge Codes Inpatient or Observation consultation: 32010
[2025-08-16 19:00] VITALS: BP 156/88; PULSE 76; RESP 16; TEMP 36.6; O2SAT 93
[2025-08-16] MEDS: PANTOPRAZOLE DR 40 MG TABLET PO (20:32)
[2025-08-16] MEDS: DORZOLAMIDE/TIMOLOL OPHTH 10 ML 1 DROPS EYE-RIGHT (20:34)
[2025-08-17] MEDS: PIPERACILLIN/TAZO 3.375 GM in SODIUM CHLORIDE 0.9% 100 ML IV ×2 (03:24→11:58)
[2025-08-17 07:00] VITALS: BP 143/78; PULSE 87; RESP 18; TEMP 36.1; O2SAT 94
--- NOTE | 2025-08-17 07:23 | PM.PN.1 ---
Subjective Subjective Interval history: Summary: S: O: NAD, alert and oriented. Fluent speech. Lungs are clear, normal rate and effort. Heart is regular, no murmur gallop or rub. Abdomen is soft, non distended. Extremities are free of edema. Imaging: CXR: Similar bibasilar opacities, right greater than left. Findings remain concerning for infection. Superimposed mild pulmonary edema. A/P: 1. Asiration pneumonia, Active. 2. Possible reflux causing progressive pneumonitis with significant deterioration Exam Vital Signs (past 8 hours): - 08/16/25 23:55 Oxygen Delivery Method Nasal Cannula Oxygen Flow Rate 4 Fraction of Inspired Oxygen 36 Fraction of Inspired Oxygen 36 SaO2/FiO2 Ratio 261 Oxygen Delivery Method Nasal Cannula Oxygen Flow Rate 4 Objective Labs 08/16/25 10:55 08/16/25 10:55 Labs: Laboratory Results - last 24 hr 08/16/25 10:55 WBC 7.4 RBC 5.45 H Hgb 14.5 Hct 43.5 MCV 79.9 L MCH 26.6 MCHC 33.3 RDW 13.7 Plt Count 162 Neut % (Auto) 75.0 Lymph % (Auto) 15.7 L [place] % (Auto) 8.0 Eos % (Auto) 0.7 L Baso % (Auto) 0.6 Neut # (Auto) 5600 Lymph # (Auto) 1200 [place] # (Auto) 600 Eos # (Auto) 100 Baso # (Auto) 0 Sodium 140 Potassium 3.9 Chloride 107 Carbon Dioxide 25 BUN 15 Creatinine 0.60 Estimated GFR > 60 BUN/Creatinine Ratio 25.0 H Glucose 94 Calcium 9.0 PFSH Medical History Acute hypoxic respiratory failure GERD without esophagitis Essential hypertension Allergic rhinitis Vision disorder Seborrhea (~2004) Mumps (~1958) Measles (~1954) Chicken pox (~1954) Surgical History Anesthesia Glaucoma (~2002) Family History Sister Age: 84 Hypertension Sister Age: 72 Glaucoma Gastric reflux Migraines Hypertension Father Cancer Mother Stroke Social History details: (Phil), no children; retired [employer] household members: spouse Smoking Status: Never smoker alcohol intake: former substance use type: does not use Assessment & Plan Time-Based Coding :: [TOTAL MINUTES] spent with patient and on the chart (including review of chart, obtaining history, exam, reviewing outside data, placing orders, documenting exam and treatment plan, and counseling patient) on [DATE].
[2025-08-17] MEDS: DORZOLAMIDE/TIMOLOL OPHTH 10 ML 1 DROPS EYE-RIGHT (08:01)
[2025-08-17] MEDS: LATANOPROST 0.005% OPHTH 2.5 ML 1 DROPS EYE-RIGHT (08:02)
[2025-08-17] MEDS: SODIUM CHLORIDE 0.9% 1,000 ML 100 ML IV (08:04)
[2025-08-17 09:00] VITALS: O2SAT 94
[2025-08-17] MEDS: LORATADINE 10 MG TABLET PO (09:12)
[2025-08-17] MEDS: PANTOPRAZOLE DR 40 MG TABLET PO (09:12)
[2025-08-17] MEDS: HEPARIN 5,000 UNIT/ML VIAL 5000 UNIT SUBCUT (09:12)
--- NOTE | 2025-08-17 10:21 | ST.IPCSEOM ---
Visit Care Team Role Provider Type Fermin London MD Primary Care Provider Physician Specialty: Internal Medicine Address: [address] [place] [address], [id number] Email: [email or web address] Bruce Becker MD Other Providers Physician Specialty: General Surgery Address: [address] [place] [address], [address], [place], [address] Email: [email or web address] Victoriano Brennan MD Admit Provider Physician Attending Provider Referring Provider Specialty: Internal Medicine Address: [address] [place] [address], [id number] Email: [email or web address] Diagnoses Gastro-esophageal reflux disease without esophagitis (08/16/25) Past Medical History (Last Reviewed 08/16/25 @ 12:43 by Victoriano Brennan MD) Acute hypoxic respiratory failure (Medical) Allergic rhinitis (Medical) Chicken pox (Medical ~1954) Essential hypertension (Medical) GERD without esophagitis (Medical) Measles (Medical ~1954) Mumps (Medical ~1958) Seborrhea (Medical ~2004) Vision disorder (Medical) Speech-Language Pathology Swallow Evaluation RECREATION THERAPIST Clinical Swallow Evaluation Start: 08/17/25 09:41 Freq: Status: Active Protocol: Document 08/17/25 09:41 SS (Rec: 08/17/25 10:21 SS Desktop) Clinical Swallow Evaluation Session Time Visit Start Time 08:10 Visit Stop Time 08:40 Total Visit Minutes 30 Visit Information Visit Number [address] Victoriano Brennan MD Reason for Referral Aspiration pneumonia and possible reflux causing progressive pneumonitis Setting Assessment Location Acute Care Visit Type Note Type Initial evaluation Next Note Type Next Note Type Treatment Note Patient Information Identification Type Name,Date of History Per H&P on 08/17/25, She was a 75-year-old female who has a direct admit from her primary care office. This is Dr. London. She presents with hypoxemia. She was had progressive hypoxemia since April and a cough. She was also had a lot of reflux symptoms. She has been evaluated with multiple studies including a barium swallow and CT scan. The working hypothesis is that this is reflux induced pneumonitis. She was had multiple treatments with antibiotics and overall continues to deteriorate. She was an oximeter at home and did one reading of high 70s while exerting herself. No fevers or chills. She has had audible wheezing and coughing at home for weeks. She lives with her on [facility]. PMHx includes acute hypoxic respiratory failure and GERD without esophagitis. Per surgical consultation, Patient known to our clinic with reflux symptoms. Recent EGD demonstrated a patulous lower esophageal sphincter and a small antral ulcer. She did not have a large hiatal hernia or esophagitis. She tested negative for Helicobacter pylori. Her symptoms include globus sensation and mucus production. She is chronically clearing her throat. She was not on acid suppression baseline and did not find symptom relief when she tried those medications. She has a history of right lower lobe pneumonia suggestive of aspiration and she is currently admitted to the hospital with another aspiration event . Her clinical picture is consistent with acid and/or bile reflux. Without a hiatal hernia or esophagitis or improvement with acid suppression we have more investigation to guide treatment recommendations. Please see note from 08/16/25 for full report. Chest X -ray demonstrated bibasilar opacities, right greater than left. Findings remain concerning for infection. Superimposed mild pulmonary edema. Clinical swallowing evaluation was completed today to assess swallow function, determine aspiration risk, make appropriate and updated diet and treatment recommendations, as well as to identify need for instrumental swallow study. Subjective Chart reviewed and RN consulted. Pt currently NPO given Observations aspiration pneumonia concerns. Pt sitting upright in bed upon RECREATION THERAPIST arrival. She was alert and oriented and able to provide her case history fully. Reported by Patient/Caregiver Other Symptoms History of aspiration or pneumonia,Weight loss Comment Pt with known history of GERD and reports occasional globus sensation, primarily with solids, as well as chronic throat clearing, which seems to have subsided recently. No difficulty with liquids or pills. Onset of symptoms about a year ago. She reported she often coughs up clear foaming liquid. She denied coughing, choking, and other overt s/sx of aspiration with PO intake. She reported s/sx consistent with esophageal issues, including belching, feeling as if she is swallowing air, and premature fullness soon after starting a meal. She expressed unintentional weight loss of about 5 lbs in the past year due to reduced appetite. Pt with known history of chronic cough/throat clearing, though she reported frequency/severity has subsided. Current Diet NPO Baseline Feeding Independent in self-feeding Method The IDDSI Framework Protocol: IDDSI.1 Objective Assessment Mental Status Alert,Responsive,Cooperative Oral Integrity WFL Dentition Within normal limits Lip Function Within normal limits Tongue Function Within normal limits Jaw Function Mild impairment Observation of Jaw Within normal limits at Rest Jaw Opening Reduced range of motion Jaw Closing Within normal limits Jaw Lateralization Reduced range of motion Jaw Protrusion Reduced range of motion Jaw Retraction Reduced range of motion Hard/Soft Palate Within normal limits Function Respiratory Mild impairment Sufficiency Comment Pt?s oral health is good. Pt has own dentition with dental work noted. The pt reports brushing teeth 2 x daily. Oral health status is one of the three pillars of aspiration pneumonia, with research showing that poor oral health increases the risk of pulmonary compromise associated with aspiration. CRANIAL NERVE EXAM CN V (Trigeminal): intact b/l (possible involvement given pre-existing TMJ issues) CN VII (Facial): intact b/l CN IX/X (Glossopharyngeal/Vagus): intact b/l CN XII (Hypoglossal): intact b/l Pt on supplemental oxygen via NC given hypoxemia, which is a change from her baseline. Food and Liquid Trials Position During Upright (90 degrees) Assessment Liquids Trialed Thin (IDDSI 0) Solid Trials Purred (IDDSI 4),Soft & Bite-sized (IDDSI 6),Regular ( IDDSI 7) Administration Type Tea spoon,Cup single sip,Controlled cup sip,Cup consecutive sips,Straw,Self-feeding Oral Impairment Within normal limits Oral Phase Comments Pt observed across trials of thin liquids (>3 oz water) via tsp, cup, and straw, puree via tsp (apple sauce), soft/bite sized via tsp (diced peaches), and regular ( cracker). Pt was able to feed self. Pt exhibited adequate bolus retrieval and containment. Pt exhibited timely bolus manipulation and complete oral clearance. Mild oral residue noted with cracker, which pt cleared independently with liquid wash. Pharyngeal Mildly impaired Impairment Pharyngeal Phase Pt did not demonstrate clinical signs/symptoms of Comments possible pharyngeal dysphagia during the evaluation and she denies experiencing overt s/sx of aspiration at other times. Clear vocal quality immediately post- swallows. No globus sensation reported. However, there is a concern for aspiration of refluxed materials given current hospital admission for hypoxemia and aspiration pneumonia. Additionally, pt has a history of right lower lobe pneumonia suggestive of aspiration and recent EGD demonstrated a patulous lower esophageal sphincter and a small antral ulcer. Fatigue/Endurance Endurance WNL Meli Swallow Yes Protocol Results The Meli Swallow Protocol is an evidence-based swallow screening protocol to determine aspiration risk. This tool has been validated across a number of different patient diagnoses and in a number of clinical settings. This is the only screening instrument that both identifies aspiration risk and, when passed, is able to recommend specific oral diets without the need for further instrumental dysphagia testing. Based upon research by Drs. Mateus Kaba and Becky Hilton, this is a reliable and validated swallow screening protocol. Cognitive Screen: PASS Results with 3oz water test: PASS Results with cracker: PASS The IDDSI Framework Protocol: IDDSI.1 Findings Swallowing Function Pharyngoesophageal phase dysphagia Severity of Swallow Mildly-moderately impaired Impairment Contributing Factors Impaired airway protection to Swallow Impairment Comments Suspect impaired airway protection in setting of GERD and esoph. dysphagia Prognosis Good Based on Cognitive status,Family support,Age Comment Pt presents with WNL oral phase of swallow and concern for possible pharyngeal phase dysphagia given history of recurrent pneumonia, current admission for aspiration pneumonia, known GERD, and known impairment of the esophageal phase of the swallow. Given concern for possible pharyngeal phase dysphagia, Modified barium swallow study (MBSS) is indicated to thoroughly further assess pt?s swallow pathophysiology in order to determine the safest diet, effective compensatory strategies, and potential rehabilitation exercises for therapy. Pt verbalized understanding/agreement with MBSS. MD notified to place MBSS order. MBSS scheduled for 08/17 at 10:00. Impact on Safety and Risk for aspiration,Risk for inadequate nutrition/ Functioning hydration Recommendations Instrumental Yes Assessment Swallowing Treatment Yes Frequency 5x/week - pending MBSS results Duration During admission Recommended Solids Regular (IDDSI 7) Recommended Liquids Thin (IDDSI 0) Other Recommend diet of regular solids (IDDSI 7) and thin Recommendations liquids (IDDSI 0). Cough strength is judged strong. Based on pt?s good oral health status and overall immune function, pt currently remains at a low risk of pulmonary compromise associated with aspiration at this time. Provided education in the importance of oral care for reduced aspiration pneumonia risk, general safe swallow precautions, and diet recommendation. Pt verbalized understanding. The plan is for the pt to complete a modified barium swallow study to further assess swallowing pathophysiology in order to determine treatment plan. Further goals will be established based on MBSS results. Safety Precautions/ Remain upright (90 degrees) during all oral intake, Swallowing Upright position at least 30 minutes after meals,Small Recommendations bites and sips when eating,Slow rate; swallow between bites,Multiple swallows,Alternate liquids and solids Medication As Tolerated Recommendations Discharge Home,Home with Home Health,Outpatient therapy Recommendations Referrals Recommended Dietary,Gastroenterology Referrals Education Patient/Caregiver Described results of evaluation,Patient expressed Education understanding of evaluation,Patient expressed agreement with goals & treatment plans Goals Short-term Goals Patient will complete MBSS to further evaluate swallowing pathophysiology and determine next steps in POC. Long-term Goals Patient will safely tolerate least restrictive diet consistency to allow for safe consumption of daily meals without s/sx of aspiration and globus sensation.
--- NOTE | 2025-08-17 12:29 | DI.ECHO.S_ITS ---
[facility] : : [address] : : [place] : : [id number] : : Phone: [phone] Echocardiogram Report + + :Name: CLARIBEL DEL VALLE Study Date: 08/17/2025 Height: 66 in : :Hospital ReadingLocation: Weight: 141 lb : : Gender: Female BSA: 1.7 m2 : :: 1950 Age: 75 yrs BP: 143/78 mmHg: :Reason For Study: PULMONARY EDEMA : :Ordering Physician: CALI, : :LEAH Osman Performed By: Melany Romo : :Referring: LEAH LEIVA : + + Interpretation Summary The left ventricular cavity is small. The ejection fraction is estimated to be 65-70%. The right ventricle is normal in size and function. There is trace tricuspid regurgitation. The right ventricular systolic pressure is estimated to be at least 48 mmHg based on an estimated right atrial pressure of 3 mm Hg. Procedure: A two-dimensional transthoracic echocardiogram with color flow and Doppler was performed. The study quality was technically difficult. There is no prior echocardiogram noted for this patient. Patient was scanned in a mostly supine position due to coughing spells when laying down. The patient was in sinus rhythm with heart rates between 80-86 bpm during the exam. Left Ventricle: The left ventricular cavity is small. There is normal left ventricular wall thickness. There is no thrombus. The ejection fraction is estimated to be 65-70%. There are no focal wall motion abnormalities. Grade I diastolic dysfunction with normal left atrial pressure. Right Ventricle: The right ventricle is normal in size and function. Atria: The left atrial size is normal. Right atrial size is normal. There is no Doppler evidence for an interatrial shunt. Mitral Valve: The mitral valve leaflets appear mildly thickened. There is trace mitral regurgitation. Aortic Valve: The aortic valve is not well visualized. The aortic valve opens well. There is no aortic valve stenosis. No aortic regurgitation is present. Tricuspid Valve: The tricuspid valve is normal. There is trace tricuspid regurgitation. The right ventricular systolic pressure is estimated to be at least 48 mmHg based on an estimated right atrial pressure of 3 mm Hg. Pulmonic Valve: The pulmonic valve is not well visualized. Great Vessels: The ascending aorta could not be visualized. The IVC is of normal diameter and collapses greater than 50% with a sniff. This suggests a low right atrial pressure of 3 mm Hg. Pericardium/ Pleura There is no pericardial effusion. There is no pleural effusion. MMode/2D Measurements & Calculations LVIDd: 3.8 cm LVOT diam: 1.9 cm LVIDs: 2.8 cm Ao Arch Diam (Prox Trans): 2.4 cm FS: 25.0 % IVSd: 0.86 cm LVPWd: 0.78 cm LV cabrera. diameter/BSA (cm/m^2): 2.2 LV sys. diameter/BSA (cm/m^2): 1.7 LA A2 area: 17.7 cm2 RA long axis: 3.4 cm LA A4 area: 11.6 cm2 RA area: 8.5 cm2 LA length (vol): 4.1 cm RA vol: 18.4 ml LA vol: 43.0 ml RA : 10.7 ml/m2 LA vol index: 24.9 ml/m2 IVC diam: 1.5 cm RVD1 (basal): 3.0 cm RVD2 (mid): 3.4 cm TAPSE: 2.0 cm Doppler Measurements & Calculations Ao V2 max: 151.2 cm/sec LVOT Max Panchito: 113.6 cm/sec Ao V2 mean: 98.2 cm/sec LV V1 max P.2 mmHg Ao max P.1 mmHg LV V1 VTI: 23.1 cm Ao mean P.4 mmHg ADAM(I,D): 2.5 cm2 Ao V2 VTI: 26.9 cm ADAM(V,D): 2.2 cm2 sev ratio: 0.86 ADAM indexed to BSA (cm^2/m^2): 1.4 MV E max panchito: 56.1 cm/sec TR max panchito: 335.6 cm/sec MV A max panchito: 84.7 cm/sec TR max P.0 mmHg MV E/A: 0.66 PA V2 max: 97.7 cm/sec Med Peak E' Panchito: 5.1 cm/sec PA V2 mean: 66.6 cm/sec E/E' med: 10.9 PA mean P.9 mmHg Lat Peak E' Panchito: 6.2 cm/sec E/E' lat: 9.0 E/e' average: 10.0 MV dec time: 0.24 sec SV(LVOT): 66.3 ml Reading Physician:05:14 PM
--- NOTE | 2025-08-17 13:26 | ST.SWALLOW ---
Visit Care Team Role Provider Type Fermin London MD Primary Care Provider Physician Specialty: Internal Medicine Address: [address] [place] [address], [id number] Email: [email or web address] Bruce Becker MD Other Providers Physician Specialty: General Surgery Address: [address] [place] [address], [address], [address] Email: [email or web address] Victoriano Brennan MD Admit Provider Physician Attending Provider Referring Provider Specialty: Internal Medicine Address: [address] [place] [address], [address] Email: [email or web address] Modified Barium Swallow Study HOSPITALIST Modified Barium Swallow Study Start: 08/17/25 09:41 Freq: Status: Active Protocol: Document 08/17/25 12:14 LNK (Rec: 08/17/25 13:25 LNK Desktop) Modified Barium Swallow Study Total Time Visit Start Time 10:00 Visit Stop Time 10:45 Total Visit Minutes [address] Balderas Reason for Referral aspiration pneumonia Setting Setting Acute Care Patient Information Identification Type Name,Date of Patient History pt was seen for a Modified Barium Swallow Study secondary to diagnoses aspiration pneumonia. Pt was seen in the ED admitted to acute care 08/16/25 with progressive hypoxemia since April and a cough. She reported she has a lot of reflux symptoms. She also described that when she lays flat in her bed, she refluxes into her pharynx often. She has been evaluated with multiple studies including a barium swallow, EGD and CT scan. Reflux induced pneumonitis is suspected per ED notes. Pt's PMH also includes GERD, right lower lobe PNE suggestive of aspiration and acute hypoxic respiratory failure without esophagitis. Recent EGD demonstrated a patulous lower esophageal sphincter and a small antral ulcer. She did not have a large hiatal hernia or esophagitis. Her symptoms include globus sensation and mucus production. She is chronically clearing her throat. She was not on acid suppression baseline and did not find symptom relief when she tried those medications. ST completed a bedside clinical evaluation of swallowing. The results stated the pt presented with WNL oral phase of swallow and concern for possible pharyngeal phase dysphagia given history of recurrent pneumonia, current admission for aspiration pneumonia, known GERD, and known impairment of the esophageal phase of the swallow. Given concern for possible pharyngeal phase dysphagia, Modified barium swallow study (MBSS). Subjective Pt was seated in the flouroscopy chair with directions Observations and procedures explained for her. She indicated she understood and agreed to proceed. Pt was seated and remained upright throughout MBSS Patient Positioning Position View Lat-A/P Imaging Lateral View Textures Administered Trials Presented Thin Liquid via Spoon (IDDSI 0),Thin Liquid via Cup ( IDDSI 0),Moderately Thick Liquid via Straw (IDDSI 3), Regular (IDDSI 7) Barium Tablet Yes The IDDSI Framework Protocol: IDDSI.1 Oral Impairment Source: The Modified Barium Swallow Impairment Profile (MBSImP??) Lip Closure No labial escape Tongue Control Escape to lateral buccal cavity/floor of mouth (FOM) During Bolus Hold Bolus Preparation/ Timely & efficient chewing & mashing Mastication Bolus Transport/ Brisk tongue motion Lingual Motion Oral Residue Residue collection on oral structures Location Tongue Initiation of Bolus head in valleculae Pharyngeal Swallow Additional Oral *OME and DKS were observed to be WNL. Impairment *Dentition natural and in good hygiene Observations *Mastication observed with rotary chew pattern. *Good bolus formation, control and AP transition. *Velopharyngeal closure was WNL. *Oral phase WNL for pt's age Pharyngeal Impairment Source: The Modified Barium Swallow Impairment Profile (MBSImP??) Soft Palate No bolus between soft palate & pharyngeal wall Elevation Laryngeal Elevation Comp.sup.move.thyroid cart.w/comp.approx.arytenoids to epiglot petiole Anterior Hyoid Complete anterior movement Excursion Epiglottic Movement Complete inversion Laryngeal Vestibular Complete; no air/contrast in laryngeal vestibule Closure Pharyngeal Stripping Present - complete Wave Pharyngoesophageal Complete distention & complete duration; no obstruction Segment Opening of flow Tongue Base No contrast between tongue base & posterior pharyngeal Retraction wall Pharyngeal Residue Trace residue within/on pharyngeal structures Location Diffuse (>3 areas) Additional Pt was observed to swallow moderate amounts air across Pharyngeal all trials/swallows Impairment *Hyoid/laryngeal elevation and epiglottic inversion Observations were judged to be adequate. *Tongue base retraction was mildly reduced resulting in trace residue. *Pharyngeal stripping wave and cricopharyngeal opening appeared adequate and did not appear to impede bolus flow. *Post-swallow residue was minimal *No laryngeal penetration or aspiration was observed. *Pharyngeal phase WNL for pt's age. A/P View Textures Administered Trials Presented Thin Liquid via Spoon (IDDSI 0) The IDDSI Framework Protocol: IDDSI.1 A/P View Observations Pharyngeal Complete Contraction Esophageal Clearance Complete clearance; esophageal coating Upright Position Esophageal Function WFL,Reverse Peristalsis Additional A-P Thin barium, barium coated cookie and calibrated barium Observations tablet provided for AP trials All trials cleared to the stomach in a timely manner Esophageal phase WNL for pt's age Clinical Impressions Dysphagia Type WNL Findings *In the upright position, the pt presented with WNL oral, pharyngeal and esophageal phases of swallowing. *No laryngeal penetration or tracheal aspiration were observed. *Pt's recent EGD demonstrated a patulous lower esophageal sphincter and a small antral ulcer. it is possible that pt's lower sphincter doesn't retain pt's stomach contents when she is laying flat or bending over, etc. This could result in reflux induced aspiration pneumonia. *HOB should be raised to 45 degrees for gravity assist to keep stomach contents in stomach. DO NOT lay flat in bed Patient Appropriate No for Therapy Recommendations Diet Comments no diet changes recommended at this time Aspiration Precautions Recommended Upright at 90 Degrees during meals Precautions Additional Remain upright for an hour after eating to allow Precautions stomach contents to clear. Treatment Plan Therapy Strategy Sitting Upright (90 deg) Recommendations Additional Remain upright for an hour after eating to allow Strategies stomach contents to clear Recommended
--- NOTE | 2025-08-17 16:26 | PM.PN.IH.1 ---
Subjective Subjective Date Patient Seen: 08/17/25 Time Patient Seen: 16:26 Interval history: Office staff working on [place] referrals for pH probe/manometry - they are months out for appointments states he will check with [facility] Exam Vital Signs (past 8 hours): - 08/17/25 09:00 Pulse Oximetry 94 Oxygen Delivery Method Nasal Cannula Oxygen Flow Rate 4 Fraction of Inspired Oxygen 36 SaO2/FiO2 Ratio 261 Oxygen Delivery Method Nasal Cannula Oxygen Flow Rate 4 Narrative Exam Narrative: Up in chair, on supplemental oxygen Const General: comfortable Orientation: alert, awake and oriented x3 Resp Effort & Inspection: normal respiratory effort and able to speak in complete sentences Cardio Rate: regular rate GI Palpation: soft Objective Labs 08/16/25 10:55 08/16/25 10:55 [facility] Medical History Acute hypoxic respiratory failure GERD without esophagitis Essential hypertension Allergic rhinitis Vision disorder Seborrhea (~2004) Mumps (~1958) Measles (~1954) Chicken pox (~1954) Surgical History Anesthesia Glaucoma (~2002) Family History Sister Age: 84 Hypertension Sister Age: 72 Glaucoma Gastric reflux Migraines Hypertension Father Cancer Mother Stroke Social History details: (Phil), no children; retired [employer] household members: spouse Smoking Status: Never smoker alcohol intake: former substance use type: does not use Assessment & Plan Assessment and plan (1) GERD without esophagitis: Status: Acute Plan Aspiration concerning for reflux In the absence of hiatal hernia/esophagitis, need pH/manometry testing for recommendations [facility] is months out for appointments; will check with Terence Continue PPI Gastric emptying study 07/30/25 with normal gastric emptying without reflux CT 07/30/25 thickening of esophagus and stomach c/w esophagitis/gastritis EGD 08/03/25 with significant gastritis, had hpylori look to it, but biopsies negative for gastritis and negative for hpylori Consider treating for hpylori empirically to monitor for symptom improvement Time-Based Coding :: [TOTAL MINUTES] spent with patient and on the chart (including review of chart, obtaining history, exam, reviewing outside data, placing orders, documenting exam and treatment plan, and counseling patient) on [DATE]. PROFEE Hat Copyist Document charge(s): Yes Charge Codes Subsequent inpatient/observation care: [id number]
[2025-08-17] MEDS: ACETAMINOPHEN 325 MG TABLET 650 MG PO (16:54)
--- NOTE | 2025-08-17 17:00 | PM.DS.1 ---
History of Present Illness History of Present Illness Chief complaint: Aspiration Pneumonia Narrative: She was a 75-year-old female who has a direct admit from her primary care office. This is Dr. London. She presents with hypoxemia. She was had progressive hypoxemia since April and a cough. She was also had a lot of reflux symptoms. She has been evaluated with multiple studies including a barium swallow and CT scan. The working hypothesis is that this is reflux induced pneumonitis. She was had multiple treatments with antibiotics and overall continues to deteriorate. She was an oximeter at home and did one reading of high 70s while exerting herself. No fevers or chills. She has had audible wheezing and coughing at home for weeks. She lives with her on [facility]. Discharge Providers Provider Date of admission: 08/16/25 09:42 Discharge Date: 08/17/25 Primary care physician: Fermin London MD Consults: 08/16/25 11:35 Consult to General Surgery Routine Comment: Consulting Provider: Bruce Becker Reason for consultation: Reflux Has provider been notified: Yes 08/16/25 13:41 Consult to Speech Therapy Evaluate & Treat Comment: Physician Instructions: Evaluate and treat Discharge provider: Victoriano Brennan MD Summary Hospital Course Discharge Diagnosis: 1. Asiration pneumonia, Active. 2. Possible reflux causing progressive pneumonitis with significant deterioration. Hospital Course: She was admitted for possible aspiration pneumonia. She was treated with empiric antibiotics, Zosyn. She underwent a modified barium swallow which was negative for aspiration. She was seen by General surgery is recommendations to continue outpatient workup for reflux with manometry and esophageal pH. She was evaluated for home oxygen and a portable unit. She did develop right musculoskeletal chest pain related to a strain which was improved with Tylenol. An echo was obtained in the day of discharge with results pending. This was communicated to her primary care, Dr. London. She will be given 7 days of cefdinir 300 b.i.d., and he will review echo results as they are available as well as send a referral to Pulmonary for possible further evaluation including bronchoscopy if needed. Status at Discharge Cognitive/behavioral status at discharge: oriented Functional status at discharge: independent ambulation Overall status at discharge: patient is progressing back to baseline Time Spent with Patient Time spent: Greater than 30 minutes Exam Vital Signs (past 8 hours): Fraction of Inspired Oxygen 36 SaO2/FiO2 Ratio 261 Oxygen Delivery Method Nasal Cannula Oxygen Flow Rate 4 Narrative Exam Narrative: NAD, alert and oriented. Fluent speech. Lungs are clear, normal rate and effort. Heart is regular, no murmur gallop or rub. Abdomen is soft, non distended. Extremities are free of edema. Objective Imaging Multiple studies: : Radiologist's impression: Echo pending. Chest x-ray: Similar bibasilar opacities, right greater than left. Findings remain concerning for infection. Superimposed mild pulmonary edema. Labs 08/16/25 10:55 08/16/25 10:55 [facility] Medical History Acute hypoxic respiratory failure GERD without esophagitis Essential hypertension Allergic rhinitis Vision disorder Seborrhea (~2004) Mumps (~1958) Measles (~1954) Chicken pox (~1954) Surgical History Anesthesia Glaucoma (~2002) Family History Sister Age: 84 Hypertension Sister Age: 72 Glaucoma Gastric reflux Migraines Hypertension Father Cancer Mother Stroke Social History details: (Phil), no children; retired [employer] household members: spouse Smoking Status: Never smoker alcohol intake: former substance use type: does not use Discharge Assessment & Plan Assessment and Plan Assessment: 1. Pneumonia. Plan of Treatment: Discharge with cefdinir b.i.d. for 7 days, and PCP will set up an expedited pulmonary referral. Discharge Plan Discharge Plan Patient Disposition: Home Provider Discharge Comment: Stable for discharge on portal full home oxygen. Discharge orders & Medications Prescriptions: New cefdinir 300 mg capsule 300 mg PO BID Qty: 14 0RF Continued loratadine [Claritin] 10 mg tablet 10 mg PO DAILY latanoprost 0.005 % drops 1 drp EYE-RIGHT DAILY dorzolamide-timolol 22.3-6.8 mg/mL drops 1 drp EYE-RIGHT BID Tums Ultra 1,000 mg 1 tab PO TID PRN (Reason: acid reflux) metoclopramide HCl 5 mg tablet 5 mg PO QAC Qty: 90 2RF Rx Instructions: administer 30 minutes before meals three times daily omeprazole 40 mg capsule,delayed release(DR/EC) 40 mg PO BID Qty: 90 0RF albuterol sulfate 90 mcg/actuation HFA aerosol inhaler 2 inh inhalation Q4H PRN (Reason: shortness of breath or wheezing) Follow up/Referrals: Fermin London MD [Primary Care Provider, Internal Medicine] Diet/Activity/Treatments Diet: Regular Visit Report/Discharge Packet Instructions: DI for Pneumonia -- Adult Stand Alone Forms: Patient Portal/API Discharge Data Primary Care Provider: Fermin London V
== END 2025-08-17 17:45 | disposition home or self-care (01) | DRG 179 ==
PROVIDERS: Admitting Provider Hospitalist; PCP Internal Medicine; Referring Provider Hospitalist; Visit Provider Hospitalist
DX: J69.0 Pneumonitis due to inhalation of food and vomit (principal); K21.9 Gastro-esophageal reflux disease without esophagitis; H40.9 Unspecified glaucoma
CPT/HCPCS: 36415; 71045; 74230; 80048; 85025; 92610; 92611; 93306; 94618; J1644; J2543

== ENCOUNTER → 2025-08-24 10:26 | Outpatient (CLI) | payer MEDICARE, BC, OTHER, SELFPAY ==
[2025-08-16 11:11] VITALS: BMI 22.7
[2025-08-24 11:35] LABS: Add Manual Diff / Slide Review NO; Hematocrit 42.8 % (36-46); Hemoglobin 14.2 g/dL (12.0-16.0); Lymphocytes Absolute Auto 1000 /uL (1100-4500); Mean Corpuscular HGB Conc 33.2 % (30-36); Mean Corpuscular Hemoglobin 26.4 PG (26-34); Mean Corpuscular Volume 79.5 fL (80-100); Platelet Count 204 X10^3/uL (150-400)
[2025-08-24 12:05] LABS: Alanine Aminotransferase 60 IU/L (<35); Albumin 4.3 g/dL (3.5-5.0); Albumin Globulin Ratio 1.5 (1.0-2.8); Alkaline Phosphatase 89 U/L (38-126); Blood Urea Nitrogen 14 mg/dL (7-17); Calcium 9.6 mg/dL (8.4-10.2); Carbon Dioxide 25 mmol/L (22-32); Chloride 107 mmol/L (98-107); Estimated Glomerular Filt Rate > 60 mL/min (>60); Globulin 2.8 g/dL (1.7-4.1); Glucose 90 mg/dL (70-99); HEMOLYSIS < 15 (0-50); Potassium 4.3 mmol/L (3.4-5.1); Sodium 141 mmol/L (137-145); Total Protein 7.1 g/dL (6.3-8.2)
[2025-08-28 07:09] LABS: Antimyeloperoxidase Antibodies <0.2 units (0.0-0.9); Antiproteinase 3 Antibodies <0.2 units (0.0-0.9)
[2025-08-28 15:11] LABS: ANA Screen, IFA Negative (.)
== END ==
PROVIDERS: PCP Internal Medicine; Referring Provider Internal Medicine; Visit Provider Internal Medicine
DX: J98.4 Other disorders of lung (principal); J84.89 Other specified interstitial pulmonary diseases; J96.01 Acute respiratory failure with hypoxia
CPT/HCPCS: 36415; 80053; 85025; 85651; 86038; 86140; 86160; 86162; 86256

== ENCOUNTER → 2025-10-29 08:20 | Outpatient (CLI) | payer MEDICARE, BC, OTHER, SELFPAY ==
[2025-08-25 09:02] VITALS: BMI 22.7
--- NOTE | 2025-10-29 08:21 | DI.CT.S_ITS ---
PROCEDURE: CT CHEST HIGH RESOLUTION INDICATIONS: follow-up ILD TECHNIQUE: Noncontrast 1.0 and 5.0 mm thick contiguous axial sections from the pulmonary apex to the posterior costophrenic angles, with 7 mm thick coronal and sagittal MIP reformats. 1 mm thick dynamic expiratory images acquired through the upper, mid, and lower lungs. 1.0 mm thick axial sections acquired from the star to the posterior costophrenic angles in the prone end-inspiration position. For radiation dose reduction, the following was used: automated exposure control, adjustment of mA and/or kV according to patient size. COMPARISON: [facility], CT, CT CHEST ABD PEL W CON, 07/30/2025, 11:26. FINDINGS: Image quality: Diagnostic. Lungs and Pleura: Findings moderately severe fine ground-glass opacity mainly involving the right middle and lower lobe, and to lesser extent posterior basal left lower lobe. There is nodular consolidation anteriorly at the right middle lobe base, medial right lower lobe, and posteriorly at the left lower lobe. Very slightly improved extent of posteromedial consolidation involving the right lower lobe. Air bronchograms are present. Mild right base septal thickening, less compared to prior. No reticulation or honeycombing. No cysts or pneumothorax. Central and peripheral airways are normal without bronchial wall thickening or bronchiectasis. No air trapping on expiration images. Coarse nodular calcification posterolateral left lower lobe. No significant effusion. Lower Neck: No enlarged lymph nodes. Thyroid: Normal CT appearance. Axillae: No enlarged lymph nodes. Chest Wall: No suspicious chest wall lesions. Bones: No suspicious bone lesion. Kyphosis without thoracic compression fracture. Mild degenerative changes in the spine. Thoracic Vessels: The aorta and pulmonary arteries demonstrate normal size. Mediastinum and June: No enlarged lymph nodes. Heart: Heart size is normal. No pericardial effusion. Mild coronary artery calcification. Esophagus: No wall thickening. No hiatal hernia. Upper Abdomen: Scattered calcified splenic granulomas. Occasional hepatic cysts. Visible portions of upper abdominal organs are otherwise normal. IMPRESSION: Decreased extent of left lung ground-glass opacity with residual posterior left base ground-glass and nodular opacities. Persistent consolidation and ground-glass opacity in the right lung with less involvement of the right upper lobe. Findings suggesting of chronic interstitial pneumonia. Differential diagnosis includes aspiration pneumonia. Organizing, eosinophilic, or desquamative interstitial pneumonia should also be considered. Drug reaction could also be considered. Dictated by: Letty Ellis M.D. on 10/29/2025 at 13:23 Approved by: Letty Ellis M.D. on 10/29/2025 at 13:38
== END ==
LOC: CT 08:21
PROVIDERS: PCP Internal Medicine; Referring Provider Internal Medicine; Visit Provider Internal Medicine
DX: Z09 Encounter for follow-up examination after completed treatment for conditions other than malignant neoplasm (principal); J84.89 Other specified interstitial pulmonary diseases; J98.4 Other disorders of lung; I25.10 Atherosclerotic heart disease of native coronary artery without angina pectoris
CPT/HCPCS: 71250

== ENCOUNTER 2025-11-16 11:47 | Day surgery (SDC) | payer MEDICARE, BC, OTHER, SELFPAY ==
[2025-08-25 09:02] VITALS: BMI 22.7
[2025-11-10 13:29] VITALS: BMI 23.8
--- NOTE | 2025-11-16 | PATH_ITS ---
Note [facility] Accession Number: [id number] TESTS RESULT FLAG UNITS REF RANGE LAB Clinician Provided Cytology Information No. of containers..01 Other (Miscellaneous) Source: BRONCHIAL WASH DIAGNOSIS: BRONCHIAL WASH NEGATIVE FOR MALIGNANT CELLS. SCANT HISTIOCYTES AND POLYMORPHOUS LYMPHOCYTES WITH RARE REACTIVE BRONCHIAL CELLS. THIS INTERPRETATION INCLUDES EVALUATION OF A CELL BLOCK. Pathologist ICD10: 01 J84.81 Signed out by: Hanane Valdivia DO, Pathologist NPI- [id number] Performed by: Chucky Tyler, Cigarette Book Maker ([facility]) Gross description: 13 CC, PINK, CLOUDY RECEIVED: FRESH IN BLUE CAP CONTAINER.VO /VDU 11/19/2025 0558 Local FLAG LEGEND: L-Low Normal,H-High Normal,LL-Alert Low,HH-Alert High <-Panic Low,>-Panic High,A-Abnormal,AA-Critical Abnormal Performed at: 01 =[facility] [address] [facility], [place] [address] Toribio Mcmullen MD, Performed at: [address] [facility] [address] [facility], [place], [place] [id number] MD Toribio Mcmullen MD Phone: [phone]
[2025-11-16 12:45] VITALS: BP 139/81; PULSE 88; RESP 16; TEMP 36.3; O2SAT 96
[2025-11-16] MEDS: LACTATED RINGERS 1,000 ML 42 ML IV (12:47)
[2025-11-16] MEDS: ALBUTEROL/IPRATROPIUM 3 ML AMPUL INH (12:59)
--- NOTE | 2025-11-16 12:59 | PM.PREOP ---
Pre-operative Note COVID-19 COVID-19 status: Not tested Interval Note History & Physical reviewed/Exam performed by Physician: Yes Changes to H&P: No ASA Class (for procedural sedation): II
[2025-11-16] MEDS: LIDOCAINE VISCOUS 2% 15 ML SOLUTION 5 ML PO (13:37)
[2025-11-16] MEDS: LIDOCAINE 2% INJ SDV 5ML 4 ML INH (13:37)
--- NOTE | 2025-11-16 14:12 | PM.BRONCH.1 ---
Operative Date/Time/Diagnoses Date of procedure: 11/16/25 Time of procedure: 14:12 Pre-op diagnosis: ILD Post-op diagnosis: same Procedure & Clinicians Procedure(s): Bronchioalveolar lavage Same procedure(s) as scheduled: Yes Ribbing Machine Operator: Danika Bernal Consent: Patient Anesthesia Type: MAC +/- Operative Notes Procedure Details & Findings: After informed consent and an identification pause, the patient was placed in the supine position and induced by anesthesiology. The bronchoscope was inserted through the bite block into oropharynx. 4mL of 2% topical lidocaine instilled onto vocal cords. The bronchoscope was then inserted into the airway.?Limited inspection was performed on the left and right bronchial trees. The star was: Sharp The airways were: Patent The mucosa appeared: normal Secretions were: Minimal Additional procedures completed as follows:: Bronchoalveolar lavage was performed in right middle lobe. 120 mL of 0.9% sterile saline was instilled and 30 mL return aspirated and sent for analysis microbiology. Was EBUS used during the procedure: No Estimated Blood Loss (mL): 0 Complications: none Condition: Stable Impression: Uncomplicated bronchoscopy Medications used: Per anesthesiology Specimen(s): BAL to cytology and BAL to micro Coding Bronchoscopy: 48142 - Bronch incl fluoro w/ bronchial alveolar lavage
[2025-11-16 14:21] VITALS: BP 98/54; PULSE 87; RESP 20; TEMP 36.1; O2SAT 90
[2025-11-16 14:27] VITALS: BP 117/64; PULSE 87; RESP 20; TEMP 36.1; O2SAT 91
[2025-11-16 14:44] VITALS: BP 142/84; PULSE 84; RESP 20; O2SAT 94
[2025-11-16 15:53] LABS: Basophils Body Fluid 0 %; Eosinophils Body Fluid 0 %; Lymphocytes Body Fluid 6 %; MESO/MACRO/MONO Body Fluid 94 %; Neutrophils Body Fluid 0 %
== END 2025-11-16 15:10 | disposition home or self-care (01) ==
PROVIDERS: PCP Internal Medicine; Referring Provider Internal Medicine; Visit Provider Internal Medicine
PROC: 0BJ08ZZ Inspection of Tracheobronchial Tree, Via Natural or Artificial Opening Endoscopic (ICD-10-PCS; CPT 31622; principal; 2025-11-16 13:00)
DX: J84.9 Interstitial pulmonary disease, unspecified (principal); Z99.81 Dependence on supplemental oxygen; K21.9 Gastro-esophageal reflux disease without esophagitis; J30.9 Allergic rhinitis, unspecified; I10 Essential (primary) hypertension; E78.5 Hyperlipidemia, unspecified; H40.9 Unspecified glaucoma
CPT/HCPCS: 31624; 87070; 87101; 87116; 87205; 87206; 87556; 87798; 87801; J2704; J7120

== ENCOUNTER → 2025-11-23 08:55 | Outpatient (CLI) | payer MEDICARE, BC, OTHER, SELFPAY ==
[2025-08-25 09:02] VITALS: BMI 22.7
--- NOTE | 2025-11-23 08:57 | EKG_ITS ---
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
== END ==
PROVIDERS: PCP Internal Medicine; Referring Provider Internal Medicine; Visit Provider Internal Medicine
DX: R00.0 Tachycardia, unspecified (principal)
CPT/HCPCS: 93005